=== PATIENT | female | born 1985 | race Two or more races ===

== ENCOUNTER 2024-12-25 07:11 | Emergency (ER) | payer BC, OTHER ==
[~2024-12-25] VITALS: Ht 154.9 cm; Wt 61.7 kg
[2024-12-25 08:19] LABS: PLATELET COUNT (AUTO) 316 K/uL (179-408); RED BLOOD CELL COUNT(AUTO) 3.82 MIL/uL (3.63-4.92); RED CELL DISTRIBUTION WIDTH 14.9 % (12.3-17.7); WHITE BLOOD COUNT (AUTO) 7.2 K/uL (3.8-11.8)
[2024-12-25 08:32] LABS: ASPARTATE AMINOTRANSFERASE 9 U/L (15-37); CREATININE 0.6 mg/dL (0.6-1.3); SODIUM SERUM 140 mmol/L (136-145); TOTAL PROTEIN, SERUM 6.9 g/dL (6.4-8.2); UREA NITROGEN, BLOOD 8 mg/dL (7-18)
[2024-12-25 08:36] LABS: *BLOOD, URINE 3+ (NEGATIVE); *CLARITY,URINE SLIGHTLY CLOUDY (CLEAR); *COLOR,URINE DARK YELLOW (YELLOW); *KETONES,URINE TRACE (NEGATIVE); *PROTEIN,URINE 2+ (NEGATIVE); *UROBILINOGEN,URINE 0.2 E.U./dl (NORMAL); LEUKOCYTE ESTERASE ,URINE NEGATIVE (NEGATIVE); NITRITE, URINE NEGATIVE (NEGATIVE); UGLUCOSE NEGATIVE (NEGATIVE)
[2024-12-25 08:47] LABS: *BILIRUBIN,URIN 1+ (NEGATIVE)
[2024-12-25 09:04] LABS: *URINE HCG, QUAL NEGATIVE (NEGATIVE)
[2024-12-25] MEDS ORDERED: ONDANSETRON 4 MG/2 ML VIAL ONE (09:09)
[2024-12-25] MEDS ORDERED: MORPHINE SULFATE 4 MG/1 ML DISP.SYRIN ONE (09:10)
[2024-12-25] MEDS: IV NORMAL SALINE 1000 ML BAG IV ONE (09:17)
[2024-12-25] MEDS: ONDANSETRON 4 MG/2 ML VIAL IV ONE (09:18)
[2024-12-25] MEDS: MORPHINE SULFATE 4 MG/1 ML DISP.SYRIN IV ONE (09:18)
[2024-12-25] MEDS ORDERED: SWABABLE VALVE TRANSFER SET EA MC ONE (11:05)
[2024-12-25] MEDS ORDERED: IOHEXOL 300MG/ML 100 ML INFUS..BTL ONE (11:05)
[2024-12-25] MEDS ORDERED: IV NORMAL SALINE 250 ML IV ONE (11:05)
[2024-12-25 13:00] VITALS: BP 129/86
[2024-12-25 13:29] VITALS: BP 129/86; TEMP 98.3; O2SAT 98
[2024-12-25] MEDS ORDERED: IBUP-1955 PO (13:36)
== END 2024-12-25 13:29 | disposition home or self-care (01) ==
LOC: ER 07:11
DX: N93.9 Abnormal uterine and vaginal bleeding, unspecified (principal); N83.201 Unspecified ovarian cyst, right side; R10.9 Unspecified abdominal pain; Z86.018 Personal history of other benign neoplasm; Z88.1 Allergy status to other antibiotic agents; Z88.5 Allergy status to narcotic agent; Z91.040 Latex allergy status
CPT/HCPCS: 99285; 74177; 96374; 76856; 96361; 96375; 80076; 80048; 81001; 84703; 83690; 85025; 85730; 86850; 86900; 86901; 36415; J2405; Q9967; J2270; J7040; A4606; A4663